=== PATIENT | male | born 1980 | race Caucasian/White ===

== ENCOUNTER 2024-06-28 23:45 | Emergency (ER) | payer OTHER ==
[~2024-06-28] VITALS: Ht 187.9 cm; Wt 129.3 kg
[2024-06-29] MEDS ORDERED: Tdap Vaccine 0.5 ML SYR (Adult Vaccine) IM ONE (01:30)
[2024-06-29] MEDS ORDERED: CEPHALEXIN500 M1 PO (02:27)
[2024-06-29] MEDS ORDERED: DERMABOND 1 EA APPL T ONE ×2 (02:32→02:42)
== END 2024-06-29 02:54 | disposition home or self-care (01) ==
LOC: ED 23:45
DX: S61.307A Unspecified open wound of left little finger with damage to nail, initial encounter (principal); W26.8XXA Contact with other sharp object(s), not elsewhere classified, initial encounter; Y93.89 Activity, other specified; Y92.89 Other specified places as the place of occurrence of the external cause; Y99.8 Other external cause status